=== PATIENT | male | born 1945 | race Caucasian/White ===

== ENCOUNTER 2023-09-17 02:11 | Emergency (ER) | payer OTHER ==
[~2023-09-17] VITALS: Ht 175.3 cm; Wt 87.0 kg
[2023-09-17 02:24] VITALS: TEMP 98.4; O2SAT 97
[2023-09-17] MEDS: MORPHINE SULFATE 4 MG/ML INJ (FOR IV/IM USE) IV ONE (02:30)
[2023-09-17] MEDS: ONDANSETRON HCL 4MG/2ML INJ IV ONE (02:30)
[2023-09-17 02:37] LABS: HEMATOCRIT. 33.5 % (42.0-52.0); HEMOGLOBIN. 11.5 g/dL (14.0-18.0); MEAN CORPUSCULAR HEMOGLOBIN 29.5 pg (28.0-32.0); MEAN CORPUSCULAR HGB CONC 34.3 g/dL (31.0-37.0); MEAN CORPUSCULAR VOLUME 85.9 fL (80.0-94.0); MEAN PLATELET VOLUME 6.9 fl (7.4-10.4); PLATELET 284 x1000/uL (130-400); WHITE BLOOD COUNT 14.7 x1000/uL (4.5-11.0)
[2023-09-17 02:41] LABS: DIFFERENTIAL COMMENT 1
[2023-09-17 02:56] LABS: ALANINE AMINOTRANSFERASE 35 IU/L (10-49); ALBUMIN 4.1 g/dL (3.2-4.8); ASPARTATE AMINOTRANSFERASE 27 IU/L (<34); BILIRUBIN TOTAL 2.7 mg/dL (0.1-1.0); CARBON DIOXIDE 22 mEq/L (21-32); CHLORIDE 98 mEq/L (98-107); CREATININE 0.7 mg/dL (0.6-1.3); GLUCOSE 141 mg/dL (70-105); POTASSIUM 3.6 mEq/L (3.5-5.1); PROTEIN TOTAL 6.9 g/dL (6.0-8.3); SODIUM 130 mEq/L (136-145); TROPONIN I HIGH SENSITIVITY 7 ng/L (3.0-53); UREA NITROGEN BLOOD 15 mg/dL (9-23)
[2023-09-17 05:47] LABS: CLARITY URINE CLEAR (CLEAR); COLOR URINE YELLOW (YELLOW); GLUCOSE URINE NEGATIVE (NEGATIVE); KETONES URINE NEGATIVE (NEGATIVE); LEUKOCYTE ESTERASE URINE NEGATIVE (NEGATIVE); NITRITE URINE NEGATIVE (NEGATIVE); OCCULT BLOOD URINE NEGATIVE (NEGATIVE); PH URINE 6.5 (4.5-8.0); PROTEIN URINE NEGATIVE (NEGATIVE); SPECIFIC GRAVITY URINE 1.052 (1.005-1.030); UROBILINOGEN URINE 0.2 E.U./dL (0.2-1.0)
[2023-09-17] MEDS ORDERED: BACL-141 MT (06:06)
[2023-09-17] MEDS ORDERED: ACET-2708 MT (06:06)
[2023-09-17 06:30] VITALS: BP 135/67; PULSE 74; RESP 20
[2023-09-17] MEDS ORDERED: IOHEXOL-300 100 ML BOTTLE ONE (06:34)
[2023-09-17 08:23] LABS: PLATELET ESTIMATE NORMAL
[2023-09-19] MEDS ORDERED: IOHEXOL-300 100 ML BOTTLE ONE (14:07)
== END 2023-09-17 06:32 | disposition home or self-care (01) ==
LOC: ER 02:11
DX: S30.0XXA Contusion of lower back and pelvis, initial encounter (principal); N40.0 Benign prostatic hyperplasia without lower urinary tract symptoms; I10 Essential (primary) hypertension; Z98.890 Other specified postprocedural states; X58.XXXA Exposure to other specified factors, initial encounter; Y93.89 Activity, other specified; Y92.89 Other specified places as the place of occurrence of the external cause; Y99.8 Other external cause status
CPT/HCPCS: 80053; 81003; 83880; 85025; 84484; 36415; 73702; 96374; 96375; 99285; Q9967; J2405; J2270; Z7610